=== PATIENT | male | born 1960 | race Caucasian/White ===

== ENCOUNTER → 2018-02-28 | Outpatient (CLI) | payer OTHER ==
[~2018-02-28] MED LIST: ALLOPURINOL 30300 M2 PO; FENOFIBRATE145 MG PO
== END ==
LOC: M.ULTRA 09:30
DX: K76.0 Fatty (change of) liver, not elsewhere classified (principal); R16.2 Hepatomegaly with splenomegaly, not elsewhere classified; R10.11 Right upper quadrant pain

== ENCOUNTER → 2018-12-20 | Outpatient (CLI) | payer OTHER ==
--- NOTE | 2018-12-20 16:40 | EXE ---
[place] [address] STRESS ECHOCARDIOGRAM Name: THOR BURRELL Room: [facility]#: [id number] Admission: 12/20/18 Attend Phys: Kaleb Sanchez, Discharge: Date of : 58 Date of Service: 12/20/18 1639 Report #: [id number] THIS REPORT FOR: //name// APPROVED REPORT Study performed: 12/20/2018 15:39:14 Exam: Stress Echocardiogram Indication: Chest pain Patient Location: Out-Patient Stress Nurse: Tricia Jerez RN Supervising Physician: Kaleb Sanchez MD Ht: 5 ft 6 in HR: 91 bpm BP: 116/74 mmHg Medical History Medical History: Hyperlipidemia Medications: crestor Cardiac Risk Factors: Hyperlipidemia, DM Procedure The patient underwent an Exercise Stress Test using the Calderon Protocol. Blood pressure, heart rate, and EKG were monitored. An Echocardiogram was performed by operations technician in four stages in quad fashion. At peak stress, four selected images were obtained and placed side by side with resting images for comparison. Stress Test Details Stress Test: Exercise stress testing was performed using a Calderon protocol. HR Resting HR: 91 bpm Max Heart Rate (APMHR): 161 bpm Max HR Achieved: 148 bpm Target HR (85% APMHR): 136 bpm % of APMHR: 91 Recovery HR: 96 bpm HR response to stress: Normal HR response to stress BP Resting BP: 116/74 mmHg Max BP: 165/81 mmHg Recovery BP: 138/65 mmHg BP response to stress: Normal blood pressure [place] [address] STRESS ECHOCARDIOGRAM Name: THOR BURRELL Room: [facility]#: [id number] Admission: 12/20/18 Attend Phys: Kaleb Sanchez, Discharge: Date of : 58 Date of Service: 12/20/18 1639 Report #: [id number] Resting ECG: Sinus Rhythm Stress ECG: Sinus Rhythm ST Change: Normal Arrhythmia: None Recovery ECG: Sinus Rhythm Recovery ST Change: Normal Clinical Reason for Termination: Completed protocol Stress Symptoms: none Exercise duration: 4 min 10 sec Highest Stage Achieved: Stage 2: 2.5 mph at 12% grade. Exercise capacity: 6.04 METs Stress ECG Conclusion negative Pre-Stress Echo The resting Echocardiogram showed normal left ventricular contractility with an estimated Ejection Fraction of about 60-65%. Post-Stress Echo LV chamber size decreases, LV ejection fraction increases, no new wall motion abnormalities are seen. Conclusion Clinical Response: Non-ischemic Exercise Capacity: Below Average Stress ECG Response: Non-ischemic Stress Echo Images: Non-ischemic Negative stress echo for ischemia at level of exercise achieved. Nondiagnostic due to MET level acheived.Consider pharmacologic stress testing. Other Information Study Quality: Good <Conclusion> Negative stress echo for ischemia at level of exercise achieved. Nondiagnostic due to MET level acheived.Consider pharmacologic stress testing. <ELECTRONICALLY SIGNED> By: Kaleb Sanchez MD, FACC 12/20/18 1639 1639 1639 Kaleb Sanchez MD, FACC /INF
== END ==
LOC: M.CRD 13:44
DX: R07.2 Precordial pain (principal); C61 Malignant neoplasm of prostate; E78.2 Mixed hyperlipidemia; E11.9 Type 2 diabetes mellitus without complications; Z83.3 Family history of diabetes mellitus; Z79.899 Other long term (current) drug therapy